=== PATIENT | male | born 1960 | race Caucasian/White ===

== ENCOUNTER 2017-10-31 20:43 | Inpatient (IN) | payer BC ==
[~2017-10-31] VITALS: Ht 175.3 cm; Wt 91.6 kg
[2017-10-31 20:52] VITALS: BP_SYST 146
[2017-10-31 22:13] LABS: BASOPHILS # (AUTO) 0.1 K/uL (0.0-0.2); BASOPHILS % (AUTO) 0.5 % (0.0-2.0); EOSINOPHILS # (AUTO) 0.1 K/uL (0.0-0.4); EOSINOPHILS % (AUTO) 0.5 % (0.0-4.0); HEMATOCRIT 50.2 % (36-54); HEMOGLOBIN 16.9 g/dL (14.0-18.0); LYMPHOCYTES # (AUTO) 3.8 K/uL (1.0-5.5); LYMPHOCYTES % (AUTO) 30.5 % (20.5-51.5); MEAN CORPUSCULAR HEMOGLOBIN 31 pg (27-31); MEAN CORPUSCULAR HGB CONC 34 % (32-36); MEAN CORPUSCULAR VOLUME 91 fL (79.0-98.0); MONOCYTES # (AUTO) 0.9 K/uL (0.0-1.0); MONOCYTES % (AUTO) 6.9 % (1.7-9.3); NEUTROPHILS # (AUTO) 7.6 K/uL (1.8-7.7); NEUTROPHILS % (AUTO) 61.6 % (40.0-70.0); PLATELET COUNT (AUTO) 366 K/uL (130-430); RED BLOOD CELL COUNT(AUTO) 5.49 MIL/uL (4.2-6.2); WHITE BLOOD COUNT (AUTO) 12.5 K/uL (4.8-10.8)
[2017-10-31] MEDS ORDERED: ASPIRIN 325 MG TABLET PO ONE (22:15)
[2017-10-31 22:25] LABS: ANION GAP 9 (5-15); CALCIUM 9.7 mg/dL (8.4-11.0); CHLORIDE 101 mmol/L (98-107); CREATININE 1.07 mg/dL (0.55-1.30); GLUCOSE 120 mg/dL (70-99); SODIUM SERUM 139 mmol/L (136-145); UREA NITROGEN, BLOOD 17 mg/dL (8-21)
[2017-10-31 22:32] LABS: PROTHROMBIN TIME 10.2 SECS (9.5-12.5)
[2017-10-31 22:34] LABS: GFR AFRICAN AMERICAN 92 mL/min (>90)
[2017-10-31 22:40] LABS: ALANINE AMINOTRANSFERASE 27 U/L (12-78); ALBUMIN 4.2 g/dL (3.4-4.8); ASPARTATE AMINOTRANSFERASE 22 U/L (10-37); LIPASE 145 U/L (73-393); TOTAL BILIRUBIN 1.2 mg/dL (0.0-1.0)
[2017-10-31] MEDS ORDERED: IOHEXOL 100 ML IV ONE (23:01)
[2017-10-31] MEDS ORDERED: ASA81 PO (23:49)
[2017-10-31] MEDS ORDERED: LOSA50TA3 PO (23:49)
[2017-11-01] MEDS ORDERED: NACL 0.9% 1,000 ML IV ONE (00:30)
[2017-11-01 01:03] VITALS: BP_SYST 144
[2017-11-01 01:13] VITALS: BP_SYST 144
[2017-11-01 08:00] VITALS: BP_SYST 132
[2017-11-01] MEDS: ASPIRIN 325 MG TABLET (ECOTRIN) PO SCH (09:00)
[2017-11-01] MEDS: LOSARTAN POTASSIUM 50 MG TABLET (COZAAR) PO SCH (09:00)
[2017-11-01 10:15] LABS: CHOLESTEROL 176 mg/dL (<200); HDL CHOLESTEROL 44 mg/dL (>45); LDL CHOLESTEROL 121 mg/dL (<100); TRIGLYCERIDES 124 mg/dL (30-150)
[2017-11-01 12:00] VITALS: BP_SYST 134
[2017-11-01 16:53] VITALS: BP_SYST 130
[2017-11-01 20:00] VITALS: BP_SYST 125
[2017-11-01] MEDS ORDERED: HYDROcodone/ACETAMIN 5-325 MG TAB (NORCO/ VICODIN) PO PRN (22:00)
[2017-11-01] MEDS: ACETAMINOPHEN 325 MG TABLET PO PRN (22:39)
[2017-11-02] VITALS: BP_SYST 119
[2017-11-02] MEDS: LOSARTAN POTASSIUM 50 MG TABLET (COZAAR) PO SCH (08:25)
[2017-11-02] MEDS: ASPIRIN 325 MG TABLET (ECOTRIN) PO SCH (08:25)
[2017-11-02] MEDS: ACETAMINOPHEN 325 MG TABLET PO PRN (10:54)
[2017-11-02] MEDS ORDERED: ATORVASTATIN 20 MG TABLET PO ONE (11:15)
[2017-11-02 12:16] VITALS: BP_SYST 135
[2017-11-02 16:18] VITALS: BP_SYST 135
[2017-11-02 20:00] VITALS: BP_SYST 147
[2017-11-02] MEDS ORDERED: cloNIDine HCL 0.1 MG TABLET PO PRN (21:30)
[2017-11-03 01:38] VITALS: BP_SYST 129
[2017-11-03] MEDS: ATORVASTATIN 20 MG TABLET PO SCH (08:06)
[2017-11-03] MEDS: ASPIRIN 325 MG TABLET (ECOTRIN) PO SCH (08:06)
[2017-11-03] MEDS: LOSARTAN POTASSIUM 50 MG TABLET (COZAAR) PO SCH (08:07)
[2017-11-03 08:08] VITALS: BP_SYST 132
[2017-11-03 12:09] LABS: A/G RATIO 1.3 (0.7-1.7); ALBUMIN 3.9 g/dL (2.9-4.4); ALPHA-1-GLOBULIN 0.3 g/dL (0.0-0.4); ALPHA-2-GLOBULIN 0.9 g/dL (0.4-1.0); BETA GLOBULIN 1.1 g/dL (0.7-1.3); GAMMA GLOBULIN 0.9 g/dL (0.4-1.8); GLOBULIN, TOTAL 3.1 g/dL (2.2-3.9); M-SPIKE Not Observed g/dL (Not Observed)
[2017-11-03 12:34] VITALS: BP_SYST 130
[2017-11-03] MEDS ORDERED: IOHEXOL 350 mgI/mL, 150 ML INFUS..BTL IV ONE (13:22)
[2017-11-03 17:00] VITALS: BP_SYST 128
[2017-11-03 20:00] VITALS: BP_SYST 114
[2017-11-04 01:21] VITALS: BP_SYST 109
[2017-11-04 07:50] VITALS: BP_SYST 132
[2017-11-04 09:07] LABS: PROTEIN S ACTIVITY 124 % (63-140)
[2017-11-04] MEDS: ATORVASTATIN 20 MG TABLET PO SCH (09:34)
[2017-11-04] MEDS: ASPIRIN 325 MG TABLET (ECOTRIN) PO SCH (09:34)
[2017-11-04] MEDS: LOSARTAN POTASSIUM 50 MG TABLET (COZAAR) PO SCH (09:40)
[2017-11-04] MEDS ORDERED: LIP20 PO (10:33)
[2017-11-04] MEDS ORDERED: CLOP75TA2 PO (10:34)
[2017-11-04 11:08] VITALS: BP_SYST 134
[2017-11-04 12:46] VITALS: BP_SYST 134
[2017-11-05 18:13] LABS: PROTEIN C ANTIGEN 119 % (60-150)
== END 2017-11-04 12:20 | disposition home or self-care (01) | DRG 65 ==
LOC: SED 20:43 → STU 11-01 00:17
PROVIDERS: ADMIT Internal Medicine Hospice and Palliative Medicine; ATTEND Internal Medicine Hospice and Palliative Medicine
DX: I63.9 Cerebral infarction, unspecified (principal); D68.59 Other primary thrombophilia; I11.9 Hypertensive heart disease without heart failure; H53.462 Homonymous bilateral field defects, left side; E78.5 Hyperlipidemia, unspecified; G43.909 Migraine, unspecified, not intractable, without status migrainosus; Z79.02 Long term (current) use of antithrombotics/antiplatelets; Z79.82 Long term (current) use of aspirin; Q21.1 Atrial septal defect; Z82.49 Family history of ischemic heart disease and other diseases of the circulatory system; Z83.3 Family history of diabetes mellitus; Z90.49 Acquired absence of other specified parts of digestive tract
CPT/HCPCS: 36415; 70450-TC; 70460-TC; 70491-TC; 70498; 70551; 80053; 80061; 83690-TC; 83880; 84155; 84165; 84484; 85025; 85302; 85306; 85379; 85610-TC; 85651-TC; 85730-TC; 93005; 93306; 93880; 93970; 96360; 99285; Q9967

== ENCOUNTER 2017-11-14 09:50 | Inpatient (IN) | payer BC ==
[~2017-11-14] VITALS: Ht 175.3 cm; Wt 91.6 kg
[2017-11-14 09:50] VITALS: BP_SYST 127
[~2017-11-14 09:50] MED LIST: ASA81 PO; CLOP75TA2 PO; LIP20 PO; LOSA50TA3 PO
[2017-11-14] MEDS ORDERED: NACL 0.9% 1,000 ML IV ONE (09:58)
[2017-11-14 10:23] LABS: BASOPHILS % (AUTO) 0.5 % (0.0-2.0); EOSINOPHILS # (AUTO) 0.2 K/uL (0.0-0.4); EOSINOPHILS % (AUTO) 2.1 % (0.0-4.0); HEMOGLOBIN 15.8 g/dL (14.0-18.0); LYMPHOCYTES # (AUTO) 2.8 K/uL (1.0-5.5); LYMPHOCYTES % (AUTO) 30.2 % (20.5-51.5); MEAN CORPUSCULAR HEMOGLOBIN 30 pg (27-31); MEAN CORPUSCULAR HGB CONC 32 % (32-36); MEAN CORPUSCULAR VOLUME 93 fL (79.0-98.0); MONOCYTES # (AUTO) 0.4 K/uL (0.0-1.0); MONOCYTES % (AUTO) 4.5 % (1.7-9.3); NEUTROPHILS # (AUTO) 5.9 K/uL (1.8-7.7); NEUTROPHILS % (AUTO) 62.7 % (40.0-70.0); PLATELET COUNT (AUTO) 377 K/uL (130-430); RED BLOOD CELL COUNT(AUTO) 5.26 MIL/uL (4.2-6.2); RED CELL DISTRIBUTION WIDTH 12.8 % (9.0-15.0); WHITE BLOOD COUNT (AUTO) 9.3 K/uL (4.8-10.8)
[2017-11-14 10:34] LABS: ANION GAP 8 (5-15); CALCIUM 9.6 mg/dL (8.4-11.0); CHLORIDE 102 mmol/L (98-107); CREATININE 1.08 mg/dL (0.55-1.30); GLUCOSE 167 mg/dL (70-99); POTASSIUM 4.9 mmol/L (3.5-5.1); SODIUM SERUM 137 mmol/L (136-145); UREA NITROGEN, BLOOD 13 mg/dL (8-21)
[2017-11-14 10:35] LABS: GFR AFRICAN AMERICAN 91 mL/min (>90)
[2017-11-14 10:37] LABS: ALANINE AMINOTRANSFERASE 24 U/L (12-78); ALBUMIN 3.7 g/dL (3.4-4.8); AMYLASE 62 U/L (0-100); ASPARTATE AMINOTRANSFERASE 21 U/L (10-37); LIPASE 174 U/L (73-393)
[2017-11-14 10:38] LABS: ALCOHOL, BLOOD < 3 mg/dL (<10)
[2017-11-14 10:45] LABS: BILIRUBIN,URINE NEGATIVE (NEGATIVE); BLOOD, URINE NEGATIVE (NEGATIVE); CLARITY/URINE CLEAR (CLEAR); COLOR,URINE YELLOW (YELLOW); GLUCOSE,URINE NEGATIVE (NEGATIVE); KETONES,URINE NEGATIVE (NEGATIVE); LEUKOCYTE ESTERASE ,URINE NEGATIVE (NEGATIVE); NITRITE, URINE NEGATIVE (NEGATIVE); PH,URINE 6.5 (5.0-8.0); PROTEIN URINE NEGATIVE (NEGATIVE); UROBILINOGEN,URINE 0.2 (0.2-1.0)
[2017-11-14 11:12] LABS: BARBITURATE, URINE NEGATIVE (NEG <=200); BENZODIAZEPINE, URINE NEGATIVE (NEG <=150); CANNABINOID, URINE NEGATIVE (NEG <=50); COCAINE, URINE NEGATIVE (NEG <=150); METHAMPHETAMINES SCREEN,URINE NEGATIVE (NEG <=500); OPIATE, URINE NEGATIVE (NEG <=100); PHENCYCLIDINE SCREEN,URINE NEGATIVE (NEG <=25); UR TRICYCLIC ANTIDEPRESSANTS NEGATIVE (NEG <=300); URINE AMPHETAMINE NEGATIVE (NEG <=500); URINE METHADONE NEGATIVE (NEG <=200); URINE OXYCODONE SCREEN NEGATIVE (NEG <=100); URINE PROPOXYPHENE SCREEN NEGATIVE (NEG <=300)
[2017-11-14] MEDS ORDERED: MECLIZINE HCL 25 MG TABLET (ANITVERT) PO ONE (11:30)
[2017-11-14 13:22] VITALS: BP_SYST 115
[2017-11-14 15:21] VITALS: BP_SYST 126
[2017-11-14 16:44] VITALS: BP_SYST 121
[2017-11-14 20:00] VITALS: BP_SYST 134
[2017-11-15 00:12] VITALS: BP_SYST 114
[2017-11-15 07:46] VITALS: BP_SYST 127
[2017-11-15] MEDS ORDERED: CLOPIDOGREL BISULFATE 75 MG TABLET PO ONE (09:30)
[2017-11-15] MEDS ORDERED: ASPIRIN 81 MG TAB.CHEW PO ONE (09:30)
[2017-11-15 12:34] VITALS: BP_SYST 133
[2017-11-15 16:06] VITALS: BP_SYST 128
[2017-11-15 20:00] VITALS: BP_SYST 128
[2017-11-16 00:39] VITALS: BP_SYST 120
[2017-11-16 08:03] VITALS: BP_SYST 137
[2017-11-16] MEDS ORDERED: ASPIRIN 81 MG TAB.CHEW PO SCH (09:00)
[2017-11-16] MEDS ORDERED: CLOPIDOGREL BISULFATE 75 MG TABLET PO SCH (09:00)
[2017-11-16 12:43] VITALS: BP_SYST 134
[2017-11-16 16:33] VITALS: BP_SYST 137
[2017-11-16 20:05] VITALS: BP_SYST 126
[2017-11-17 00:20] VITALS: BP_SYST 120
[2017-11-17 08:37] VITALS: BP_SYST 119
[2017-11-17 12:15] VITALS: BP_SYST 132
[2017-11-17 14:33] VITALS: BP_SYST 132
== END 2017-11-17 14:55 | disposition home or self-care (01) | DRG 66 ==
LOC: SED 09:50 → STU 13:00
PROVIDERS: ADMIT Internal Medicine Hospice and Palliative Medicine; ATTEND Internal Medicine Hospice and Palliative Medicine
DX: I60.9 Nontraumatic subarachnoid hemorrhage, unspecified (principal); H53.462 Homonymous bilateral field defects, left side; E78.00 Pure hypercholesterolemia, unspecified; G43.909 Migraine, unspecified, not intractable, without status migrainosus; H53.40 Unspecified visual field defects; I10 Essential (primary) hypertension; Z90.49 Acquired absence of other specified parts of digestive tract; Z79.82 Long term (current) use of aspirin; Z79.899 Other long term (current) drug therapy; Z79.02 Long term (current) use of antithrombotics/antiplatelets
CPT/HCPCS: 36415; 70450-TC; 70551; 71045; 80053; 80307; 81003; 82150-TC; 82550-TC; 83690-TC; 84484; 85025; 85610-TC; 85730-TC; 87081; 93005; 96360; 99285; G0482; J7030; J8597

== ENCOUNTER 2017-11-24 11:15 | Outpatient (CLI) | payer BC ==
[~2017-11-24 11:15] MED LIST changes: -ASA81 PO; -CLOP75TA2 PO
== END 2017-11-24 18:54 | disposition home or self-care (01) ==
LOC: SMI 11:15
PROVIDERS: ATTEND Psychiatry & Neurology Neurology
DX: I63.9 Cerebral infarction, unspecified (principal)
CPT/HCPCS: 70551